=== PATIENT | male | born 1955 | race African-American/Black ===

== ENCOUNTER 2017-08-10 14:42 | Emergency (ER) | payer SELFPAY ==
[~2017-08-10] VITALS: Ht 175.3 cm; Wt 63.5 kg
[2017-08-10] MEDS ORDERED: IV NORMAL SALINE 1000ML BAG 1,000 ML IV ONE (15:15)
--- NOTE | 2017-08-10 15:35 | EKG ---
[facility] [address] [place] [id number] Test Date: 2017-08-10 Test Time: 15:21:28 Pat Name: ARNOL GORDON Department: Room: Gender: M House [employer] Helper: : 1955 Requested By: OLI MOHR Order Number: [id number] Reading MD: Gaston Sykes MD Measurements Intervals [place] Rate: 105 P: 82 UT: 126 QRS: 68 QRSD: 94 T: 71 QT: 300 QTc: 400 Interpretive Statements SINUS TACHYCARDIA NON-SPECIFIC ST/T CHANGES Electronically Signed On 08-13-2017 10:58:21 PROJECT DEVELOPMENT COORDINATOR by Gaston Sykes MD
[2017-08-10 15:38] LABS: BASO % 0 % (0-3); EOS % 0 % (0-3); HEMOGLOBIN 12.2 g/dL (13.0-17.5); LYMPH % 6 % (24-48); MEAN CORPUSCULAR HEMOGLOBIN 25 pg (25-35); MEAN CORPUSCULAR HGB CONC 32 g/dL (31-37); MEAN CORPUSCULAR VOLUME 79 fL (79-100); MONO % 5 % (0-9); NEUT % 89 % (31-73); PLATELET COUNT 527 x10^3/uL (140-400); RED CELL DISTRIBUTION WIDTH 16.4 % (11.5-14.5); WHITE BLOOD COUNT 16.7 x10^3/uL (4.0-11.0)
[2017-08-10 16:03] LABS: ALBUMIN/GLOBULIN RATIO 0.6 (1.0-1.7); CREATININE 1.4 mg/dL (0.7-1.3); GFR 62.1; MAGNESIUM 1.9 mg/dL (1.8-2.4); POTASSIUM 3.5 mmol/L (3.5-5.1); TOTAL BILIRUBIN 0.8 mg/dL (0.2-1.0); TOTAL PROTEIN 8.3 g/dL (6.4-8.2)
[2017-08-10 16:11] LABS: CALCIUM 16.2 mg/dL (8.5-10.1)
--- NOTE | 2017-08-10 16:12 | RAD ---
Portable AP upright view CXR: Clinical indications: Tachycardia. Findings: No acute lung infiltrate or pleural effusion or pulmonary edema or lung mass or pneumothorax is seen. The heart size, pulmonary vasculature, mediastinum and both afia are unremarkable. Impression: No acute radiographic abnormality is seen.
[2017-08-10] MEDS ORDERED: IOHEXOL 300 MG/ML 100ML VIAL. IV ONE (16:15)
[2017-08-10 16:16] LABS: PLT ESTIMATE INCREASED (ADEQUATE); POIKILOCYTOSIS SLIGHT
[2017-08-10] MEDS ORDERED: CONTRAST GIVEN MC PRN (16:30)
[2017-08-10 16:39] LABS: BILIRUBIN,URINE NEGATIVE (NEG); GLUCOSE,URINE NEGATIVE (NEG); NITRITE,URINE NEGATIVE (NEG); PROTEIN,URINE >=300 mg/dL (NEG-TRACE)
[2017-08-10 16:51] LABS: BACTERIA,URINE MANY /HPF (0-FEW); WBC,URINE TNTC /HPF (0-4)
[2017-08-10] MEDS ORDERED: IV NORMAL SALINE 1000ML BAG 1,000 ML IV SCH (17:22)
--- NOTE | 2017-08-10 17:39 | RAD ---
EXAM: CT abdomen/pelvis with contrast. HISTORY: Abdominal pain. Urinary retention. TECHNIQUE: Computed tomography of the abdomen and pelvis was performed after the intravenous administration of 75 mL Omnipaque 300. COMPARISON: None. FINDINGS: Lung windows through the visualized portions of the bases reveal a groundglass density nodule in the right middle lobe on image 3 measuring 9 mm. Another spiculated uncalcified nodule in the right costophrenic angle measures 9 x 6 mm on image 11. There is mild atelectasis on the left. Another small nodular focus is seen along the left major fissure on image 1. A small pneumatocele is noted in the right lower lobe. Bone windows reveal no suspicious lesions. The scrotum is small and no testicles are seen. There is no clear spermatic matter cord bilaterally. There are paired soft tissue density structures within the pelvis which may represent undistended testicles or ovaries. These measure 2.8 x 1.8 cm on the right and 2.5 x 1.4 cm on the left. The penis is unremarkable by CT in its included portions. A large heterogeneously enhancing mass in the pelvis measures 10 x 8 x 8 cm. This is thought to represent the prostate, but the organ of origin is unclear in the setting of ambiguous gender. Alternatively, this may represent a large invasive mass arising in a uterus/vagina equivalent. The bladder is difficult to identify but may be decompressed and flattened, or it may be stretched around an enlarged prostatic median lobe. There is moderate left hydronephrosis. The left kidney enhances less avidly than the right concerning for acute obstruction or pyelonephritis. There is no hydronephrosis on the right. There is no cortical atrophy. A left external iliac lymph node measures 15 x 10 mm and may be involved. Small right obturator nodes are indeterminate and measure up to 11 x 7 mm. Left para-aortic nodes measure up to 10 x 5 mm and are not clearly involved. The liver, spleen, adrenal glands, gallbladder and pancreas are unremarkable. The appendix is not inflamed. IMPRESSION: 1. 10 cm heterogeneous invasive mass in the pelvis concerning for neoplasm. The organ of origin is unclear in the setting of ambiguous biological gender. This may represent a mass arising from the prostate, the bladder, or possibly a rudimentary uterus/vagina. There are small paired soft tissue masses in the pelvis, which may represent ovaries or undescended testicles. The mass does not arise from either. Neoplasms of endometrial, cervical, prostate or bladder origin are considerations, including atypical mesenchymal lesions such as rhabdomyosarcoma. Severe benign prosthetic hypertrophy is another consideration. 2. Moderate left hydronephrosis with evidence of acute obstruction. If there is evidence of infection, pyonephrosis is not excluded on ongoing management is recommended. 3. Small bilateral pelvic lymph nodes are indeterminate but may be metastatically involved. 4. Nodules in the right lung base measure up to 9 mm and also indeterminate in the setting. *One or more of the following individualized dose reduction techniques were utilized for this examination: 1. Automated exposure control. 2. Adjustment of the mA and/or kV according to patient size. 3. Use of iterative reconstruction technique.
--- NOTE | 2017-08-10 18:20 | PHYS DOC ---
Past Medical History Past Medical History: No Pertinent History Past Surgical History: No Surgical History Alcohol Use: None Drug Use: None Adult General Chief Complaint Chief Complaint: URINARY RETENTION HPI HPI Patient is a 61 year old male who presents with acute urinary retention. Patient reports 6 week history of inability to completely void, urinary frequency and urgency. Denies fevers/chills, nausea/vomiting, flank pain, dysuria, hematuria. Reports dark urine. Denies any known past medical history or surgical history. He has not seen a doctor for at least 40 years. 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 Does not have a primary care physician. Review of Systems Review of Systems Constitutional: Denies fever or chills Eyes: Denies change in visual acuity HENT: Denies nasal congestion or sore throat Respiratory: Denies cough or shortness of breath Cardiovascular: Denies chest pain or edema GI: Denies abdominal pain, nausea, vomiting, bloody stools or diarrhea : Denies dysuria or hematuria, reports urinary retention Musculoskeletal: Denies back pain or joint pain Integument: Denies rash or skin lesions Neurologic: Denies headache, focal weakness or sensory changes All other systems were reviewed and found to be within normal limits, except as documented in this note. Current Medications Current Medications Current Medications Medications (Trade) Dose Ordered Sig/Delma Start Time Stop Time Status Last Admin Dose Admin Info (Do NOT chart on this entry -- for MONITORING) 1 each PRN DAILY PRN 08/10/17 16:30 08/12/17 16:29 Iohexol (Omnipaque 300 Mg/ml) 75 ml 1X ONCE 08/10/17 16:15 08/10/17 16:16 DC 08/10/17 16:20 75 ML Levofloxacin/ Dextrose 150 ml @ 100 mls/hr 1X ONCE 08/10/17 17:30 08/10/17 18:59 08/10/17 17:30 100 MLS/HR Sodium Chloride 1,000 ml @ 320 mls/hr Q3H8M 08/10/17 17:22 08/10/17 23:21 08/10/17 18:12 320 MLS/HR Allergies Allergies Allergies Coded Allergies Type Severity Reaction Last Updated Verified No Known Drug Allergies 08/10/17 No Physical Exam Physical Exam Constitutional: Well developed, well nourished, no acute distress, non-toxic appearance. HENT: Normocephalic, atraumatic, bilateral external ears normal, oropharynx moist, nose normal. Eyes: conjunctiva normal, no discharge. Neck: supple, no stridor. Cardiovascular: RRR, no murmurs, no edema. Lungs & Thorax: LCTAB, no wheezing, no respiratory distress. Abdomen: soft, suprapubic tenderness & fullness, abdomen otherwise nontender, no definite mass palpated, no pulsatile mass. Skin: Warm, dry, no erythema, no rash. Back: No CVA tenderness. Extremities: No tenderness, no edema. Neurologic: Alert and oriented X 3, no focal deficits noted. Psychologic: Affect normal, judgement normal, mood normal. Current Patient Data Vital Signs Vital Signs Date Time Temp Pulse Resp B/P (MAP) Pulse Ox O2 Delivery O2 Flow Rate FiO2 08/10/17 18:30 82 20 97 08/10/17 15:01 97.5 103/78 (86) Room Air 97.5 Lab Values Laboratory Tests Test 08/10/17 15:10 08/10/17 15:30 08/10/17 15:31 08/10/17 16:35 Glucose (Fingerstick) 140 mg/dL (70-99) H White Blood Count 16.7 x10^3/uL (4.0-11.0) H Red Blood Count 4.80 x10^6/uL (4.30-5.70) Hemoglobin 12.2 g/dL (13.0-17.5) L Hematocrit 38.0 % (39.0-53.0) L Mean Corpuscular Volume 79 fL (79-100) Mean Corpuscular Hemoglobin 25 pg (25-35) Mean Corpuscular Hemoglobin Concent 32 g/dL (31-37) Red Cell Distribution Width 16.4 % (11.5-14.5) H Platelet Count 527 x10^3/uL (140-400) H Neutrophils (%) (Auto) 89 % (31-73) H Lymphocytes (%) (Auto) 6 % (24-48) L Monocytes (%) (Auto) 5 % (0-9) Eosinophils (%) (Auto) 0 % (0-3) Basophils (%) (Auto) 0 % (0-3) Neutrophils # (Auto) 14.9 x10^3uL (1.8-7.7) H Lymphocytes # (Auto) 1.0 x10^3/uL (1.0-4.8) Monocytes # (Auto) 0.8 x10^3/uL (0.0-1.1) Eosinophils # (Auto) 0.0 x10^3/uL (0.0-0.7) Basophils # (Auto) 0.0 x10^3/uL (0.0-0.2) Segmented Neutrophils % 86 % (35-66) H Lymphocytes % 9 % (24-48) L Monocytes % 5 % (0-10) Platelet Estimate Increased (ADEQUATE) Platelet Clumps, EDTA Present Poikilocytosis Slight Sodium Level 135 mmol/L (136-145) L Potassium Level 3.5 mmol/L (3.5-5.1) Chloride Level 96 mmol/L (98-107) L Carbon Dioxide Level 29 mmol/L (21-32) Anion Gap 10 (6-14) Blood Urea Nitrogen 27 mg/dL (8-26) H Creatinine 1.4 mg/dL (0.7-1.3) H Estimated GFR (Cockcroft-Gault) 62.1 BUN/Creatinine Ratio 19 (6-20) Glucose Level 142 mg/dL (70-99) H Calcium Level 16.2 mg/dL (8.5-10.1) *H Magnesium Level 1.9 mg/dL (1.8-2.4) Total Bilirubin 0.8 mg/dL (0.2-1.0) Aspartate Amino Transferase (AST) 19 U/L (15-37) Alanine Aminotransferase (ALT) 18 U/L (16-63) Alkaline Phosphatase 115 U/L (46-116) Troponin I Quantitative < 0.017 ng/mL (0.000-0.055) Total Protein 8.3 g/dL (6.4-8.2) H Albumin 3.0 g/dL (3.4-5.0) L Albumin/Globulin Ratio 0.6 (1.0-1.7) L Lipase 149 U/L (73-393) Prostate Specific Antigen 0.02 ng/mL (0.00-4.00) POC Troponin I 0.00 ng/ml (<0.08) Urine Collection Type Unknown Urine Color Geri Urine Clarity Turbid Urine pH 8.0 Urine Specific [place] 1.015 Urine Protein >=300 mg/dL (NEG-TRACE) Urine Glucose (UA) Negative mg/dL (NEG) Urine Ketones (Stick) Negative mg/dL (NEG) Urine Blood Large (NEG) Urine Nitrite Negative (NEG) Urine Bilirubin Negative (NEG) Urine Urobilinogen Dipstick 1.0 mg/dL (0.2 mg/dL) Urine Leukocyte Esterase Large (NEG) Urine RBC 1-2 /HPF (0-2) Urine WBC Tntc /HPF (0-4) Urine Squamous Epithelial Cells None /LPF Urine Bacteria Many /HPF (0-FEW) Laboratory Tests 08/10/17 15:30 Laboratory Tests 08/10/17 15:30 EKG EKG interpreted by me: 1521: sinus tachycardia rate 105 ST elevation in lead V2 only without reciprocal changes, normal intervals, no ectopy.[] Radiology/Procedures Radiology/Procedures PROCEDURE: CHEST AP ONLY Portable AP upright view CXR: Clinical indications: Tachycardia. Findings: No acute lung infiltrate or pleural effusion or pulmonary edema or lung mass or pneumothorax is seen. The heart size, pulmonary vasculature, mediastinum and both afia are unremarkable. Impression: No acute radiographic abnormality is seen. DICTATED and SIGNED BY: ALEXEY INMAN MD DATE: 08/10/17 1606 PROCEDURE: CT ABD PELV W/ IV CONTRST ONLY EXAM: CT abdomen/pelvis with contrast. HISTORY: Abdominal pain. Urinary retention. TECHNIQUE: Computed tomography of the abdomen and pelvis was performed after the intravenous administration of 75 mL Omnipaque 300. COMPARISON: None. FINDINGS: Lung windows through the visualized portions of the bases reveal a groundglass density nodule in the right middle lobe on image 3 measuring 9 mm. Another spiculated uncalcified nodule in the right costophrenic angle measures 9 x 6 mm on image 11. There is mild atelectasis on the left. Another small nodular focus is seen along the left major fissure on image 1. A small pneumatocele is noted in the right lower lobe. Bone windows reveal no suspicious lesions. The scrotum is small and no testicles are seen. There is no clear spermatic matter cord bilaterally. There are paired soft tissue density structures within the pelvis which may represent undistended testicles or ovaries. These measure 2.8 x 1.8 cm on the right and 2.5 x 1.4 cm on the left. The penis is unremarkable by CT in its included portions. A large heterogeneously enhancing mass in the pelvis measures 10 x 8 x 8 cm. This is thought to represent the prostate, but the organ of origin is unclear in the setting of ambiguous gender. Alternatively, this may represent a large invasive mass arising in a uterus/vagina equivalent. The bladder is difficult to identify but may be decompressed and flattened, or it may be stretched around an enlarged prostatic median lobe. There is moderate left hydronephrosis. The left kidney enhances less avidly than the right concerning for acute obstruction or pyelonephritis. There is no hydronephrosis on the right. There is no cortical atrophy. A left external iliac lymph node measures 15 x 10 mm and may be involved. Small right obturator nodes are indeterminate and measure up to 11 x 7 mm. Left para-aortic nodes measure up to 10 x 5 mm and are not clearly involved. The liver, spleen, adrenal glands, gallbladder and pancreas are unremarkable. The appendix is not inflamed. IMPRESSION: 1. 10 cm heterogeneous invasive mass in the pelvis concerning for neoplasm. The organ of origin is unclear in the setting of ambiguous biological gender. This may represent a mass arising from the prostate, the bladder, or possibly a rudimentary uterus/vagina. There are small paired soft tissue masses in the pelvis, which may represent ovaries or undescended testicles. The mass does not arise from either. Neoplasms of endometrial, cervical, prostate or bladder origin are considerations, including atypical mesenchymal lesions such as rhabdomyosarcoma. Severe benign prosthetic hypertrophy is another consideration. 2. Moderate left hydronephrosis with evidence of acute obstruction. If there is evidence of infection, pyonephrosis is not excluded on ongoing management is recommended. 3. Small bilateral pelvic lymph nodes are indeterminate but may be metastatically involved. 4. Nodules in the right lung base measure up to 9 mm and also indeterminate in the setting. *One or more of the following individualized dose reduction techniques were utilized for this examination: 1. Automated exposure control. 2. Adjustment of the mA and/or kV according to patient size. 3. Use of iterative reconstruction technique. DICTATED and SIGNED BY: GERONIMO DICK MD DATE: 08/10/17 1112 [] Course & Med Decision Making Course & Med Decision Making Pertinent Labs and Imaging studies reviewed. (See chart for details) Impression presents with acute urinary retention. RN performed bladder scan, shows only about 80 mls of urine in the bladder. Patient noted to be tachycardic upon arrival but afebrile. History is very limited. Gave IV fluids, obtained labs, UA base straight catheterization, and CT of the abdomen and pelvis. Heart rate improved to low 100s with fluid bolus. Labs show leukocytosis , acute renal failure, hypercalcemia. Straight catheter demonstrates essentially pyuria. CT findings quite abnormal and I discussed at length with the radiologist. 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 There is a large pelvic mass concerning for neoplasm. Unclear from which organ the mass originates. There is hydronephrosis with acute obstruction. Patient needs emergent evaluation by urology and will need potentially extensive workup to determine etiology of the pelvic mass. Unfortunately no urology coverage at [facility] at this time. Recommended transfer to [facility] for further evaluation and treatment. The patient agrees with care. Discussed with transfer line, patient accepted by Dr. Wick for transfer & admission. Patient to be transferred by EMS, in guarded condition. [] Dragon Disclaimer Dragon Disclaimer This electronic medical record was generated, in whole or in part, using a voice recognition dictation system. Departure Departure Impression: Primary Impression: Pyonephrosis Additional Impressions: Obstructive uropathy Sepsis Pelvic mass Disposition: 05 TRANSFER OTHER Condition: GUARDED Referrals: NO PCP (PCP) Problem Qualifiers OLI MOHR MD Aug 10, 2017 18:20
[2017-08-10 19:36] VITALS: BP 98/69
== END 2017-08-10 20:08 | disposition short-term general hospital (02) ==
LOC: ER 14:42
DX: N13.6 Pyonephrosis (principal); A41.9 Sepsis, unspecified organism
CPT/HCPCS: 36415; 71010; 74177; 80053; 81001; 82962; 83605; 83690; 83735; 84484; 85007; 85025; 87040; 87086; 93005; 96361; 96365; 96366; 99285; G0103; J1956; J7030; Q9967; 87205